=== PATIENT | female | born 2005 | race Caucasian/White ===

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

== ENCOUNTER 2024-04-20 17:01 | Emergency (ER) | payer SELFPAY ==
[2024-04-20 17:20] VITALS: RESP 18; TEMP 96.2; O2SAT 98
[2024-04-20] MEDS ORDERED: ZOFRAN ODT 4 MG ONE (17:27)
[2024-04-20] MEDS: ZOFRAN ODT 4 MG PO ONE (17:28)
[2024-04-20 17:50] LABS: Appearance Clear (Clear); Bacteria None Seen /HPF (None Seen); Bilirubin Negative (Negative); Blood Negative (Negative); Epithelial Cells None Seen /HPF (None Seen); Glucose, Urine Negative (Negative); Hyaline Casts NONE SEEN /LPF (0-2); Ketones Negative (Negative); Leukocyte Esterase Negative (Negative); Nitrite Negative (Negative); Ph 7.5 (4.6-8.0); Protein,Urine Dip Negative (Negative); RBC 0-2 /HPF (0-5); WBC 0-2 /HPF (0-5)
[2024-04-20 18:10] LABS: Group A Strep NOT DETECTED (NEGATIVE)
[2024-04-20 18:21] LABS: INFLUENZA A NEGATIVE (NEGATIVE); INFLUENZA B NEGATIVE (NEGATIVE); RESPIRATORY SYNCTIAL VIRUS NEGATIVE (NEGATIVE); SARS-CoV-2 Xpert Express NEGATIVE (NEGATIVE)
--- NOTE | 2024-04-20 18:39 | ERPHSYRPT ---
- History of Present Illness Time Seen by Provider: 04/20/24 18:40 Source: patient Exam Limitations: no limitations Patient Subjective Stated Complaint: pt states that she has a sorethroat, cough, nasal congestion, and vomiting Triage Nursing Assessment: pt ambulated into the er; pt is axo x4; c/o sorethroat; pt states 8/10 pain with swollowing; throat is red, no excudate present; skin PDW; no respiratory distress present; vitals wnl Physician History: 18-year-old female presents to emergency department for evaluation of nausea vomiting and a sore throat. Symptoms been ongoing for the past 2 to 3 days. Patient is experiencing nasal congestion and a cough. Patient works at a daycare. Patient requesting a work note. Patient otherwise feels well. No diarrhea no rash no fever no pain. Patient states she is otherwise healthy no significant past medical history. Patient voices no other complaints or concerns at this time. Portions of this note were created with voice recognition technology. There may be grammatical, spelling, punctuation or sound alike errors Timing/Duration: day(s) (2 to 3 days) Modifying Factors: Improves With: nothing Associated Symptoms: denies symptoms Allergies/Adverse Reactions: No Known Drug Allergies Allergy (Verified 04/20/24 17:10) Hx Tetanus, Diphtheria Vaccination/Date Given: Yes Hx Influenza Vaccination/Date Given: Yes Hx Pneumococcal Vaccination/Date Given: No Travel Risk - International Travel Have you traveled outside of the country in past 3 weeks: No - Emerging Infectious Disease Are you exhibiting symptoms associated with any current EIDs: Yes Symptoms: Cough: New Onset, Vomitting - Review of Systems Constitutional: No Symptoms, No Fever, No Chills Eyes: No Symptoms Ears, Nose, & Throat: No Symptoms Respiratory: No Symptoms, No Cough, No Dyspnea Cardiac: No Symptoms, No Chest Pain, No Edema, No Syncope Abdominal/Gastrointestinal: No Symptoms, No Abdominal Pain, No Nausea, No Vomiting, No Diarrhea Genitourinary Symptoms: No Symptoms, No Dysuria Musculoskeletal: No Symptoms, No Back Pain, No Neck Pain Skin: No Symptoms, No Rash Neurological: No Symptoms, No Dizziness, No Focal Weakness, No Sensory Changes Psychological: No Symptoms Endocrine: No Symptoms Hematologic/Lymphatic: No Symptoms Immunological/Allergic: No Symptoms All Other Systems: Reviewed and Negative - Past Medical History Pertinent Past Medical History: Yes Neurological History: Migraines ENT History: Other Cardiac History: No Pertinent History Respiratory History: No Pertinent History Endocrine Medical History: No Pertinent History Musculoskeletal History: No Pertinent History GI Medical History: No Pertinent History History: No Pertinent History Psycho-Social History: No Pertinent History Female Reproductive Disorders: No Pertinent History Other Medical History: CLEFT PALATE - Past Surgical History Past Surgical History: Yes Neuro Surgical History: No Pertinent History Cardiac: No Pertinent History Respiratory: No Pertinent History Gastrointestinal: Cholecystectomy Genitourinary: No Pertinent History Musculoskeletal: No Pertinent History Female Surgical History: Section Other Surgical History: ORAL SURG,TONSILS,wrist injury - Female History Hx Last Menstrual Period: 09/09/23 Hx Now: No - Social History Smoking Status: Light tobacco smoker Exposure to second hand smoke: No Drug Use: none - Social Determinants of Health Will the patient participate in the screening: Yes Do you worry about a steady place to live?: No Do you have any problems with any of the following?: No known problems In the past 12 months,have you had to go without utilities?: No Transportation Issues: No Has anyone in your support network made you feel unsafe?: No Have you or anyone in your house had to go w/o enough food: No - Nursing Vital Signs Nursing Vital Signs: Initial Vital Signs Temperature 96.2 F 04/20/24 17:10 Pulse Rate 106 H 04/20/24 17:10 Respiratory Rate 18 04/20/24 17:10 Blood Pressure 123/77 04/20/24 17:10 O2 Sat by Pulse Oximetry 98 04/20/24 17:10 Pain Scale Pain Intensity 8 - Physical Exam General Appearance: no apparent distress, alert Eye Exam: PERRL/EOMI, eyes nml inspection Ears, Nose, Throat Exam: normal ENT inspection, TMs normal, pharynx normal, moist mucous membranes, other (No uvula observed on exam patient reports she has a history of a cleft palate which was subsequently repaired) Neck Exam: normal inspection, non-tender, supple, full range of motion Respiratory Exam: normal breath sounds, lungs clear, No respiratory distress Cardiovascular Exam: regular rate/rhythm, normal heart sounds, normal peripheral pulses Gastrointestinal/Abdomen Exam: soft, normal bowel sounds, No tenderness, No mass Back Exam: normal inspection, normal range of motion, No CVA tenderness, No vertebral tenderness Extremity Exam: normal inspection, normal range of motion, pelvis stable Neurologic Exam: alert, oriented x 3, cooperative, normal mood/affect, nml cerebellar function, nml station & gait, sensation nml, No motor deficits Skin Exam: normal color, warm, dry, No rash Lymphatic Exam: No adenopathy SpO2 Interpretation: normal SpO2: 98 O2 Delivery: Room Air - Course Nursing assessment & vital signs reviewed: Yes Ordered Tests: Active Orders 24 hr Category Date Time Status UA W/RFX UR CULTURE Stat Lab 04/20/24 17:26 Completed Medication Summary Discontinued Medications Generic Name Dose Route Start Last Admin Trade Name Freq PRN Reason Stop Dose Admin Ondansetron HCl 4 mg 04/20/24 17:23 04/20/24 17:28 Zofran 4 Mg/Udtablet Orally Disintegrating PO 04/20/24 17:24 4 mg STAT ONE Administration Ondansetron HCl Confirm 04/20/24 17:27 Zofran 4 Mg/Udtablet Orally Disintegrating Administered 04/20/24 17:28 Dose 4 mg .ROUTE .Proxible-MED ONE Lab/Rad Data: Laboratory Results 04/20/24 04/20/24 Range/Units 17:38 17:26 Urine Color Yellow (Yellow) Urine Appearance Clear (Clear) Urine pH 7.5 (4.6-8.0) Ur Specific [place] 1.020 (1.005-1.030) Urine Protein Negative (Negative) Urine Glucose (UA) Negative (Negative) mg/dL Urine Ketones Negative (Negative) Urine Blood Negative (Negative) Urine Nitrite Negative (Negative) Urine Bilirubin Negative (Negative) Urine Urobilinogen 1.0 A (0.2) mg/dL Ur Leukocyte Esterase Negative (Negative) U Hyaline Cast (Auto) NONE SEEN (0-2) /LPF Urine Microscopic RBC 0-2 (0-5) /HPF Urine Microscopic WBC 0-2 (0-5) /HPF Ur Epithelial Cells None Seen (None Seen) /HPF Urine Bacteria None Seen (None Seen) /HPF Urine Culture Reflexed NO (NO) Influenza Type A Ag NEGATIVE (NEGATIVE) Influenza Type B Ag NEGATIVE (NEGATIVE) RSV (PCR) NEGATIVE (NEGATIVE) SARS-CoV-2 (PCR) NEGATIVE (NEGATIVE) Group A Strep Antibody NOT DETECTED (NEGATIVE) - Progress Progress: improved Progress Note: 18-year-old female presents to our ED with a viral syndrome URI sore throat cough. Patient experienced nausea and vomiting. Patient received Zofran. Patient tolerated p.o. Nausea vomiting resolved. Rapid strep RSV influenza COVID testing negative. Patient does have a URI likely viral. No indication for antibiotics. Supportive care only. A prescription for Zofran forwarded to patient's pharmacy. Patient reassessed. She feels well patient currently asymptomatic and is requesting discharge. Work note provided. Patient agrees to follow-up with her primary care doctor within 48 hours for reevaluation. Portions of this note were created with voice recognition technology. There may be grammatical, spelling, punctuation or sound alike errors Complexity of problem addressed is moderate acute complicated no critical care time. Complex of data reviewed and analyzed is moderate. Test ordered test reviewed results analyzed and correlated clinically with history and physical exam. Risk of complication and or risk of morbidity/mortality of patient management is moderate. A prescription for Zofran forwarded to patient's pharmacy.. Vital stable. Time spent to discharge patient is approximately 15 minutes. Plan of care established for shared decision making. No social determinants of health present to impede follow-up. Portions of this note were created with voice recognition technology. There may be grammatical, spelling, punctuation or sound alike errors 04/20/24 18:47 Counseled pt/family regarding: diagnosis, need for follow-up, rad results - Departure Departure Disposition: Home Clinical Impression: URI (upper respiratory infection), Viral syndrome, Vomiting Condition: Stable Critical Care Time: No Referrals: WILDER QUINTANILLA [Primary Care Provider] - Follow up/PCP as directed Additional Instructions: Discharge/Care Plan ANNARACHELL was seen on 04/20/24 in the Emergency Room. The patient was counseled regarding Diagnosis,Lab results, Imaging studies, need for follow up and when to return to the Emergency Room. Prescriptions given: Discharge Note I have spoken with the patient and/or caregivers. I have explained the patient's condition, diagnosis and treatment plan based on the information available to me at this time. I have answered the patient's and/or caregiver's questions and addressed any concerns. The patient and/or caregivers have as good understanding of the patient's diagnosis, condition and treatment plan as can be expected at this point. The vital signs have been stable. The patient's condition is stable and appropriate for discharge from the emergency department. The patient will pursue further outpatient evaluation with the primary care physician or other designated or consulting physician as outlined in the discharge instructions. The patient and/or caregivers are agreeable to this plan of care and follow-up instructions have been explained in detail. The patient and/or caregivers have received these instruction. The patient/and or caregivers are aware that any significant change in condition or worsening of symptoms should prompt an immediate return to this or the closest emergency department or call 911. Prescriptions: Ondansetron ODT 4 MG [Zofran Odt 4 mg] 4 mg PO Q6H PRN PRN #10 tablet PRN Reason: Vomiting
[2024-04-20 18:43] VITALS: BP 99/67; PULSE 86
== END 2024-04-20 18:47 | disposition home or self-care (01) ==
LOC: ED 17:01
DX: J06.9 Acute upper respiratory infection, unspecified (principal); R11.2 Nausea with vomiting, unspecified; J02.9 Acute pharyngitis, unspecified; R05.1 Acute cough; Z79.899 Other long term (current) drug therapy; Z72.0 Tobacco use
CPT/HCPCS: 0241U; 81001; 87651; 99283; Q0162

== ENCOUNTER 2024-04-27 01:19 | Emergency (ER) | payer MEDICAID ==
[2024-04-27] MEDS ORDERED: TORAdol 30 mg Injection ONE ×2 (01:32→01:39)
[2024-04-27] MEDS ORDERED: Augmentin 875-125 Tablet ONE (01:32)
[2024-04-27] MEDS ORDERED: DELTASONE 20 MG ONE (01:32)
[2024-04-27 01:33] VITALS: RESP 18; TEMP 97.5
[2024-04-27] MEDS: Augmentin 875-125 Tablet PO ONE (01:35)
[2024-04-27] MEDS: DELTASONE 20 MG PO ONE (01:36)
[2024-04-27] MEDS: TORAdol 30 mg Injection IM ONE (01:38)
--- NOTE | 2024-04-27 01:44 | ERPHSYRPT ---
- History of Present Illness Time Seen by Provider: 04/27/24 01:39 Source: patient Exam Limitations: no limitations Patient Subjective Stated Complaint: "Sore throat for 3 weeks" Triage Nursing Assessment: . Physician History: 18-year-old female presents to our emergency department for evaluation of a sore throat. Patient was in our ED on 20 April. Patient had a workup which consisted of a viral panel and a rapid strep. Patient at that time complained of a sore throat. Patient was diagnosed with a viral syndrome. Patient's viral symptomology resolved. However her sore throat continued to worsen. No associ ated fever. No nausea vomiting or diaphoresis. Patient otherwise feels well. No systemic manifestations. Patient voices no other complaints or concerns at this time. Portions of this note were created with voice recognition technology. There may be grammatical, spelling, punctuation or sound alike errors Timing/Duration: week(s) (3 weeks) Severity: moderate Modifying Factors: Improves With: nothing Associated Symptoms: denies symptoms Allergies/Adverse Reactions: No Known Drug Allergies Allergy (Verified 04/27/24 01:35) Hx Tetanus, Diphtheria Vaccination/Date Given: Yes Hx Influenza Vaccination/Date Given: Yes Hx Pneumococcal Vaccination/Date Given: No Immunizations Up to Date: Yes Travel Risk - International Travel Have you traveled outside of the country in past 3 weeks: No - Emerging Infectious Disease Are you exhibiting symptoms associated with any current EIDs: No Symptoms: Cough: New Onset, Vomitting - Review of Systems Constitutional: No Symptoms, No Fever, No Chills Eyes: No Symptoms Ears, Nose, & Throat: No Symptoms Respiratory: No Symptoms, No Cough, No Dyspnea Cardiac: No Symptoms, No Chest Pain, No Edema, No Syncope Abdominal/Gastrointestinal: No Symptoms, No Abdominal Pain, No Nausea, No Vomiting, No Diarrhea Genitourinary Symptoms: No Symptoms, No Dysuria Musculoskeletal: No Symptoms, No Back Pain, No Neck Pain Skin: No Symptoms, No Rash Neurological: No Dizziness, No Focal Weakness, No Sensory Changes Psychological: No Symptoms Endocrine: No Symptoms Hematologic/Lymphatic: No Symptoms Immunological/Allergic: No Symptoms All Other Systems: Reviewed and Negative - Past Medical History Pertinent Past Medical History: Yes Neurological History: Migraines ENT History: Other Cardiac History: No Pertinent History Respiratory History: No Pertinent History Endocrine Medical History: Diabetes Type II Musculoskeletal History: No Pertinent History GI Medical History: No Pertinent History History: No Pertinent History Psycho-Social History: No Pertinent History Female Reproductive Disorders: No Pertinent History Other Medical History: CLEFT PALATE, thyroid issue (according to dr wu), fatty issue - Past Surgical History Past Surgical History: Yes Neuro Surgical History: No Pertinent History Cardiac: No Pertinent History Respiratory: No Pertinent History Gastrointestinal: Cholecystectomy Genitourinary: No Pertinent History Musculoskeletal: No Pertinent History Female Surgical History: Section Other Surgical History: ORAL SURG,TONSILS - Female History Hx Last Menstrual Period: unknown - control Hx Now: No - Social History Smoking Status: Light tobacco smoker Exposure to second hand smoke: No Drug Use: none - Social Determinants of Health Will the patient participate in the screening: Yes Do you worry about a steady place to live?: No Do you have any problems with any of the following?: No known problems In the past 12 months,have you had to go without utilities?: No Transportation Issues: No Has anyone in your support network made you feel unsafe?: No Have you or anyone in your house had to go w/o enough food: No - Nursing Vital Signs Nursing Vital Signs: Initial Vital Signs Temperature 97.5 F 04/27/24 01:26 Pulse Rate 95 H 04/27/24 01:26 Respiratory Rate 18 04/27/24 01:26 Blood Pressure 116/97 04/27/24 01:26 O2 Sat by Pulse Oximetry 100 04/27/24 01:26 Pain Scale Pain Intensity 8 - Physical Exam General Appearance: no apparent distress, alert Eye Exam: PERRL/EOMI, eyes nml inspection Ears, Nose, Throat Exam: normal ENT inspection, TMs normal, pharynx normal, moist mucous membranes, other (Tonsillar exudate) Neck Exam: normal inspection, non-tender, supple, full range of motion, other (Anterior cervical lymphadenopathy) Respiratory Exam: normal breath sounds, lungs clear, No respiratory distress Cardiovascular Exam: regular rate/rhythm, normal heart sounds, normal peripheral pulses Gastrointestinal/Abdomen Exam: soft, normal bowel sounds, No tenderness, No mass Back Exam: normal inspection, normal range of motion, No CVA tenderness, No vertebral tenderness Extremity Exam: normal inspection, normal range of motion, pelvis stable Neurologic Exam: alert, oriented x 3, cooperative, normal mood/affect, nml cerebellar function, nml station & gait, sensation nml, No motor deficits Skin Exam: normal color, warm, dry, No rash Lymphatic Exam: No adenopathy SpO2 Interpretation: normal SpO2: 100 O2 Delivery: Room Air - Course Nursing assessment & vital signs reviewed: Yes Ordered Tests: Medication Summary Discontinued Medications Generic Name Dose Route Start Last Admin Trade Name Amanda PRN Reason Stop Dose Admin Amoxicillin/Clavulanate Potassium 875 mg 04/27/24 01:29 Amox Tr/Potassium Clavulanate 875 Mg Tablet PO 04/27/24 01:30 STAT ONE Amoxicillin/Clavulanate Potassium Confirm 04/27/24 01:32 Amox Tr/Potassium Clavulanate 875 Mg Tablet Administered 04/27/24 01:33 Dose 875 mg .ROUTE .STK-MED ONE Ketorolac Tromethamine 60 mg 04/27/24 01:28 Ketorolac Tromethamine 30 Mg/Ml Inj IM 04/27/24 01:29 STAT ONE Ketorolac Tromethamine Confirm 04/27/24 01:32 Ketorolac Tromethamine 30 Mg/Ml Inj Administered 04/27/24 01:33 Dose 30 mg .ROUTE .STK-MED ONE Prednisone 60 mg 04/27/24 01:29 Prednisone 20 Mg Tablet PO 04/27/24 01:30 STAT ONE Prednisone Confirm 04/27/24 01:32 Prednisone 20 Mg Tablet Administered 04/27/24 01:33 Dose 60 mg .ROUTE .STK-MED ONE - Progress Progress: improved Progress Note: 18-year-old female presents to emergency department for evaluation of sore throat. Physical exam reveals cervical lymphadenopathy. Tonsillar exudate. And pharyngitis. Based on [facility] criteria and patient's ongoing symptoms over the past 3 weeks we decided to treat patient with , Augmentin, prednisone and Toradol. Patient reassessed. Symptoms improved. Patient states she is ready for discharge. No indication for further workup will discharge home. Patient agrees to follow-up with primary care doctor within 48 hours for reevaluation. Portions of this note were created with voice recognition technology. There may be grammatical, spelling, punctuation or sound alike errors Complexity of problem addressed is moderate acute complicated. No critical care time. Complex of data reviewed analyzes none. Diagnosis made based on history and physical exam. No specialized testing ordered. Risk of complication and or risk of morbidity/mortality of patient management is moderate. A prescription for prednisone Toradol and Augmentin forwarded to patient's pharmacy. Vital stable. Time spent to discharge patient is approximately 15 minutes. Plan of care established for shared decision making. No social determinants of health present to impede follow-up. Portions of this note were created with voice recognition technology. There may be grammatical, spelling, punctuation or sound alike errors 04/27/24 01:49 Counseled pt/family regarding: lab results, diagnosis, need for follow-up, rad results - Departure Departure Disposition: Home Clinical Impression: Pharyngitis, Sore throat Condition: Stable Critical Care Time: No Referrals: WILDER QUINTANILLA [Primary Care Provider] - Follow up/PCP as directed Additional Instructions: Discharge/Care Plan RACHELL CASTILLO was seen on 04/27/24 in the Emergency Room. The patient was counseled regarding Diagnosis,Lab results, Imaging studies, need for follow up and when to return to the Emergency Room. Prescriptions given: Discharge Note I have spoken with the patient and/or caregivers. I have explained the patient's condition, diagnosis and treatment plan based on the information available to me at this time. I have answered the patient's and/or caregiver's questions and addressed any concerns. The patient and/or caregivers have as good understanding of the patient's diagnosis, condition and treatment plan as can be expected at this point. The vital signs have been stable. The patient's condition is stable and appropriate for discharge from the emergency department. The patient will pursue further outpatient evaluation with the primary care physician or other designated or consulting physician as outlined in the discharge instructions. The patient and/or caregivers are agreeable to this plan of care and follow-up instructions have been explained in detail. The patient and/or caregivers have received these instruction. The patient/and or caregivers are aware that any significant change in condition or worsening of symptoms should prompt an immediate return to this or the closest emergency department or call 911. Prescriptions: Amox Tr/Potass Clav. 875 mg [Augmentin 875-125 Tablet] 875 mg PO BID 7 Days #14 tablet Prednisone 10 mg [Deltasone 10 mg] 40 mg PO DAILY 3 Days #12 tablet Ketorolac Trometh 10 mg Tab [TORAdol 10 MG TABLET] 10 mg PO TID 5 Days #15 tablet
[2024-04-27 03:03] VITALS: BP 117/68; PULSE 79; O2SAT 99
== END 2024-04-27 03:15 | disposition home or self-care (01) ==
LOC: ED 01:19
DX: J02.9 Acute pharyngitis, unspecified (principal); E11.9 Type 2 diabetes mellitus without complications; Z79.52 Long term (current) use of systemic steroids; Z79.899 Other long term (current) drug therapy; Z72.0 Tobacco use
CPT/HCPCS: 96372; 99283; J1885; A9270-GY

== ENCOUNTER 2025-01-05 18:41 | Emergency (ER) | payer MEDICAID | END 2025-01-05 19:00 | disposition left against medical advice (07) | LOC: ED 18:41 | DX: Z53.21 Procedure and treatment not carried out due to patient leaving prior to being seen by health care provider (principal) ==